=== PATIENT | female | born 1935 | race Caucasian/White ===

== ENCOUNTER 2022-03-08 13:13 | Outpatient (CLI) | payer MEDICARE, OTHER | END 2022-03-08 13:14 | disposition home or self-care (01) | LOC: MADRAD 13:13 | PROVIDERS: ATTEND Urology | DX: N13.39 Other hydronephrosis (principal); Z96.0 Presence of urogenital implants | CPT/HCPCS: 74018 ==

== ENCOUNTER 2023-03-12 12:22 | Emergency (ER) | payer MEDICARE, OTHER | END 2023-03-12 13:57 | disposition home or self-care (01) | LOC: MADERS 12:22 | DX: J01.90 Acute sinusitis, unspecified (principal); I10 Essential (primary) hypertension; Z79.899 Other long term (current) drug therapy; Z20.822 Contact with and (suspected) exposure to COVID-19 | CPT/HCPCS: 71045; 87635; 87804 ==